=== PATIENT | female | born 1975 | race Caucasian/White ===

== ENCOUNTER → 2019-11-19 16:17 | Outpatient (CLI) | payer OTHER, SELFPAY ==
--- NOTE | 2019-11-19 16:25 | DI.RAD.S_ITS ---
PROCEDURE: XR SHOULDER RT MIN 2V INDICATIONS: CERVICAL RADICULOPATHY TECHNIQUE: 3 views of the shoulder were acquired. COMPARISON: None. FINDINGS: Bones: No fractures or dislocations. No suspicious bony lesions. Visualized ribs appear intact. Soft tissues: No suspicious soft tissue calcifications. IMPRESSION: No significant osseous abnormality identified. If clinically indicated MRI of the shoulder could be performed to evaluate the rotator cuff. Dictated by: Jose David Martinez M.D. on 11/19/2019 at 17:26 Approved by: Jose David Martinez M.D. on 11/19/2019 at 17:28
--- NOTE | 2019-11-19 16:25 | DI.RAD.S_ITS ---
PROCEDURE: XR CERVICAL SPINE 2V OR 3V INDICATIONS: CERVICAL RADICULOPATHY TECHNIQUE: 2 view(s) of the cervical spine were acquired. COMPARISON: None. FINDINGS: Bones: No fractures or dislocations to the superior endplate of T1 level. The lateral masses of C1 appear intact on the odontoid view. No suspicious bony lesions. Small anterior osteophyte at C5 identified. Probable mild narrowing of the C6-C7 and C7-T1 neural foramen. Soft tissues: No prevertebral soft tissue swelling. IMPRESSION: Probable mild narrowing of the C6-C7 and C7-T1 neural foramen. Mild degenerative change. Further evaluation with MRI or CT of the cervical spine should be considered. Dictated by: Jose David Martinez M.D. on 11/19/2019 at 17:24 Approved by: Jose David Martinez M.D. on 11/19/2019 at 17:26
== END ==
PROVIDERS: Referring Provider Chiropractor; Visit Provider Chiropractor
DX: M47.22 Other spondylosis with radiculopathy, cervical region (principal); S43.001A Unspecified subluxation of right shoulder joint, initial encounter; X58.XXXA Exposure to other specified factors, initial encounter
CPT/HCPCS: 72040; 73030